=== PATIENT | male | born 1985 | race Caucasian/White ===

== ENCOUNTER 2017-12-23 13:31 | Emergency (ER) | payer OTHER ==
[~2017-12-23] VITALS: Ht 182.9 cm; Wt 70.3 kg
[2017-12-23] MEDS ORDERED: BENTYL 10 MG CA10 M1 PO (13:57)
[2017-12-23] MEDS ORDERED: PROTONIX40 M1 PO (13:57)
[2017-12-23 14:12] VITALS: BP 126/89
== END 2017-12-23 14:13 | disposition home or self-care (01) ==
LOC: M.ERS 13:31
DX: G89.29 Other chronic pain (principal); M54.5 Low back pain; K21.9 Gastro-esophageal reflux disease without esophagitis; Z88.1 Allergy status to other antibiotic agents; Z88.6 Allergy status to analgesic agent; Z88.8 Allergy status to other drugs, medicaments and biological substances; Z91.041 Radiographic dye allergy status; Z87.11 Personal history of peptic ulcer disease; Z87.19 Personal history of other diseases of the digestive system